=== PATIENT | male | born 1990 | race American Indian/Alaskan Native ===

== ENCOUNTER 2016-12-18 02:19 | Emergency (ER) | payer OTHER ==
[2016-12-18 02:40] VITALS: BP 138/97
== END 2016-12-18 07:40 | disposition left against medical advice (07) ==
LOC: ED 02:19
DX: R51 Headache (principal); M54.2 Cervicalgia; M54.9 Dorsalgia, unspecified; Z53.21 Procedure and treatment not carried out due to patient leaving prior to being seen by health care provider